=== PATIENT | female | born 1985 | race Caucasian/White ===

== ENCOUNTER 2017-10-23 23:34 | Observation (INO) ==
[2017-10-23] MEDS ORDERED: AMPICILLIN SODIUM 2,000 MG in NORMAL SALINE 100 ML IV ONE (23:48)
[2017-10-23] MEDS ORDERED: AZITHROMYCIN 250 MG TABLET PO ONE (23:49)
[2017-10-23] MEDS ORDERED: RINGER'S SOLUTION,LACTATED 1,000 ML IV PRN (23:50)
[2017-10-24] MEDS ORDERED: BETAMETHASONE ACETATE,SOD PHOS 6 MG/ML VIAL IM ONE (00:44)
--- NOTE | 2017-10-24 00:55 | HP ---
Chief Complaint - Chief Complaint Date of Service: 10/24/17 Chief Complaint: contractions and leaking fluid History of Present Illness: 32 yo, CF, G1 at 34.5 weeks with EDC of 11/30/17 by a 7.1 week ultrasound on 1917. Patient presents with contractions for a day, worsening contractions q5m since afternoon. [place] a gush of fluid at about 11 pm with pinkish clear water dripping on the floor. 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 is complicated by a second trimester bleeding at 14-16 weeks. Takes vitamin only. GBS collected tonight. Cervix dilated to 1 cm. Grossly rupture confirmed during exam. PMH: PCOS PSH: Tonsilectomy SH: denies for tobacco, alcohol or drug use. FH: maternal grandfather: heart disease paternal grandfather: COPD All: NKDA Medical History (Last Reviewed 10/07/17 @ 10:18 by Jah Cardenas) Body piercing Tattoos Wears glasses Hypothyroidism PCOS (polycystic ovarian syndrome) Surgical History: Surgical History (Last Reviewed 10/07/17 @ 10:18 by Jah Cardenas) History of tonsillectomy and adenoidectomy History of wisdom tooth extraction Family History: Family History (Last Reviewed 10/07/17 @ 10:18 by Jah Cardenas) Father Family history of prostate problems Grandfather CAD (coronary artery disease) Myocardial infarction Grandfather COPD (chronic obstructive pulmonary disease) A-fib Grandmother Bladder cancer Mother Bipolar disorder Manic behavior PTSD (post-traumatic stress disorder) Grandmother Alive and well Social History: Preferred Language [place] Review Of Systems (GEN) - Review of Systems Abdominal: Present: Other - contractions Genitourinary: Present: Other - leaking fluid Misc: All systems neg except as marked Allergies/Adverse Reactions: Allergies Allergy/AdvReac Type Severity Reaction Status Date / Time No Known Drug Allergies Allergy Verified 10/23/17 23:52 Home Medications: HOME MEDICATIONS PXT72-DS 400 mcg-om3 35 mg-dha 25 mg-epa 5 mg-fish oil chewable tablet 1 tab PO DAILY tab 09/02/17 [Last Taken 09/19/17 0900] Exam - Exam Vital Signs: BP 124/85, HR 76, R 18, T 36.8, O2 98% Constitutional: Present: Alert, Oriented x3, Cooperative Neck: Present: supple Back Exam: Present: no CVA tenderness Respiratory: Present: normal breath sounds, no respiratory distress, No rales, No wheezing Cardiovascular/Chest: Present: normal peripheral pulses, regular rate, rhythm, no murmur Abdomen: Present: soft, nontender, other - gravid /Rectal: Present: Other - cervix: 1 cm, 75% and -2. Grossly rupture of membrane. Nitrazine test positive. 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 Plan: IV fluid. ampicillin 2 g iv at 12:05 azithromycin 1 g po at 12:05 betamethasone per request by Dr. Desmond Velasquez. Will transfer to [facility] labor and delivery. Dr. Desmond Velasquez accepted the transfer. Esa Mcintyre MD
[2017-10-24] MEDS ORDERED: RINGER'S SOLUTION,LACTATED 1,000 ML IV ONE (01:07)
== END 2017-10-24 01:00 | disposition short-term general hospital (02) ==
LOC: OBCLINIC 23:34 → OB 10-24 00:04 → INTOOBSV 10-24 00:04
PROVIDERS: ADMIT Obstetrics & Gynecology; ATTEND Obstetrics & Gynecology
DX: O42.013 Preterm premature rupture of membranes, onset of labor within 24 hours of rupture, third trimester; Z68.35 Body mass index [BMI] 35.0-35.9, adult; E28.2 Polycystic ovarian syndrome; Z3A.35 35 weeks gestation of pregnancy
CPT/HCPCS: 59025; 87081; 96365; 96372; G0378